=== PATIENT | female | born 1990 | race African-American/Black ===

== ENCOUNTER 2017-07-14 16:47 | Emergency (ER) | payer OTHER ==
[~2017-07-14] VITALS: Ht 160 cm; Wt 72.6 kg
[2017-07-14 17:06] VITALS: Ht 160 cm; Wt 72.6 kg
[2017-07-14 18:29] VITALS: BP 106/83
== END 2017-07-14 18:29 | disposition home or self-care (01) ==
LOC: ED 16:47
DX: R30.0 Dysuria (principal); I10 Essential (primary) hypertension

== ENCOUNTER 2017-11-04 19:03 | Emergency (ER) | payer OTHER ==
[~2017-11-04] VITALS: Ht 167.6 cm; Wt 71.2 kg
[2017-11-04 19:24] VITALS: Ht 167.6 cm; Wt 71.2 kg
[2017-11-04 22:37] VITALS: BP 127/68
== END 2017-11-04 22:37 | disposition home or self-care (01) ==
LOC: ED 19:03
DX: R11.2 Nausea with vomiting, unspecified (principal); R19.7 Diarrhea, unspecified; R10.9 Unspecified abdominal pain
CPT/HCPCS: Q0162

== ENCOUNTER 2018-03-13 18:05 | Emergency (ER) | payer OTHER ==
[~2018-03-13] VITALS: Ht 160 cm; Wt 70.8 kg
[2018-03-13 18:08] VITALS: BP 111/72; Ht 160 cm; Wt 70.8 kg
== END 2018-03-13 19:46 | disposition left against medical advice (07) ==
LOC: ED 18:05
DX: Z53.21 Procedure and treatment not carried out due to patient leaving prior to being seen by health care provider (principal)

== ENCOUNTER 2018-03-16 15:38 | Emergency (ER) | payer OTHER ==
[~2018-03-16] VITALS: Ht 160 cm; Wt 73.0 kg
[2018-03-16 15:44] VITALS: Ht 160 cm; Wt 73.0 kg
[2018-03-16 17:11] VITALS: BP 125/77
== END 2018-03-16 17:11 | disposition home or self-care (01) ==
LOC: ED 15:38
DX: M43.6 Torticollis (principal)
CPT/HCPCS: J1885

== ENCOUNTER 2018-06-12 14:21 | Emergency (ER) | payer OTHER ==
[~2018-06-12] VITALS: Ht 160 cm; Wt 69.9 kg
[2018-06-12 14:39] VITALS: BP 125/78; Ht 160 cm; Wt 69.9 kg
== END 2018-06-12 15:08 | disposition home or self-care (01) ==
LOC: ED 14:21
DX: L25.9 Unspecified contact dermatitis, unspecified cause (principal); F17.210 Nicotine dependence, cigarettes, uncomplicated

== ENCOUNTER 2018-06-24 19:24 | Emergency (ER) | payer OTHER ==
[~2018-06-24] VITALS: Ht 160 cm; Wt 69.9 kg
[2018-06-24 20:08] VITALS: Ht 160 cm; Wt 69.9 kg
[2018-06-24 22:49] VITALS: BP 123/66
== END 2018-06-24 22:49 | disposition home or self-care (01) ==
LOC: ED 19:24
DX: R09.82 Postnasal drip (principal); R05 Cough; R09.89 Other specified symptoms and signs involving the circulatory and respiratory systems

== ENCOUNTER 2018-07-23 15:52 | Emergency (ER) | payer OTHER ==
[~2018-07-23] VITALS: Ht 160 cm; Wt 68.0 kg
[2018-07-23 15:57] VITALS: BP 106/70; Ht 160 cm; Wt 68.0 kg
== END 2018-07-23 16:59 | disposition home or self-care (01) ==
LOC: ED 15:52
DX: J06.9 Acute upper respiratory infection, unspecified (principal); F17.210 Nicotine dependence, cigarettes, uncomplicated; Z71.6 Tobacco abuse counseling
CPT/HCPCS: 99406

== ENCOUNTER 2018-08-26 17:02 | Emergency (ER) | payer OTHER ==
[~2018-08-26] VITALS: Ht 160 cm; Wt 68.2 kg
[2018-08-26 17:07] VITALS: Ht 160 cm; Wt 68.2 kg
[2018-08-26 18:42] VITALS: BP 121/79
== END 2018-08-26 18:25 | disposition home or self-care (01) ==
LOC: ED 17:02
DX: L02.413 Cutaneous abscess of right upper limb (principal)
CPT/HCPCS: J2001

== ENCOUNTER 2018-10-18 18:46 | Emergency (ER) | payer OTHER ==
[~2018-10-18] VITALS: Ht 160 cm; Wt 69.4 kg
[2018-10-18 18:49] VITALS: Ht 160 cm; Wt 69.4 kg
[2018-10-18 20:46] VITALS: BP 128/79
== END 2018-10-18 20:46 | disposition home or self-care (01) ==
LOC: ED 18:46
DX: S80.11XA Contusion of right lower leg, initial encounter (principal); W50.3XXA Accidental bite by another person, initial encounter; Y93.89 Activity, other specified; Y92.89 Other specified places as the place of occurrence of the external cause; Y99.8 Other external cause status
CPT/HCPCS: 90715

== ENCOUNTER 2019-04-15 18:07 | Emergency (ER) | payer OTHER ==
[~2019-04-15] VITALS: Ht 160 cm; Wt 76.7 kg
[2019-04-15 18:18] VITALS: Ht 160 cm; Wt 76.7 kg
[2019-04-15 19:27] VITALS: BP 122/78
== END 2019-04-15 19:20 | disposition home or self-care (01) ==
LOC: ED 18:07
DX: J11.1 Influenza due to unidentified influenza virus with other respiratory manifestations (principal)